=== PATIENT | male | born 1950 | race Caucasian/White ===

== ENCOUNTER → 2017-05-23 | Outpatient (CLI) | payer MEDICARE ==
--- NOTE | 2017-05-23 14:15 | CONS ---
CONSULTATION DATE OF SERVICE: 05/23/2017 A 66-year-old gentleman who has been re-evaluated in the Sleep Center for obstructive sleep apnea-hypopnea syndrome. HISTORY OF PRESENT ILLNESS/SLEEP-WAKE EVALUATION: Patient has been diagnosed with obstructive sleep apnea-hypopnea syndrome in 2009. Since that time, he was on treatment with CPAP. Patient continued to use CPAP equipment every night. Presently developed some problems with breathing through his nose. His sleep schedule from 9 p.m. until 7:38 a.m. Sometimes he has problem with falling asleep, does not have TV in bedroom. He wakes up from sleep 3 times with 3 episodes of nocturia, sometimes again plugging of his nose while he is using his machine. Last CPAP titration done in 2009. Since that time, patient is on treatment with CPAP at 9 cm of water. Previously, patient had severe periodic limb movements, but mostly before he was started on treatment with CPAP. [place] Sleepiness Scale today is 3. I checked patient's CPAP unit. Usage is 100% of the time more than 4 hours. Machine does not have information about patient's breathing during the sleep. RAMP is 30 minutes. Humidity at level of 4. PAST MEDICAL HISTORY: Nasal polyps, hyperlipidemia, BPH, sinusitis. PAST SURGICAL HISTORY: Sinus surgery in 2000. MEDICATIONS: Flonase, Flomax, simvastatin. SOCIAL HISTORY: Positive for smoking for about 30 years. Quit 10 years ago. Alcohol consumption none at the present time. REVIEW OF SYSTEMS: Awakenings from sleep while using his CPAP equipment. FAMILY HISTORY: Heart problems, sinus headaches, lung problems, sleep apnea, snoring. PHYSICAL EXAM: gentleman without distress, BP 139/88, HR 67, RR 16, height 5, 9-1/2 inches, weight 269.8, BMI 39.1, temperature 97.6, oxygen saturation at room air 97%. OROPHARYNX: Extremely low position of soft palate. Some restriction of nasal breathing. ABDOMEN: Obese. Neck Supple, no JVD. Thyroid is not palpable. LUNGS Clear to percussion and to auscultation. Good air exchange. No wheezing or rhonchi. HEART S1, S2 regular. No murmurs, gallops, or rubs. EXTREMITIES No clubbing or cyanosis. PRESS PULLER Awake, alert, and oriented X3. Cranial nerves 2 to 7 intact. There is no fasciculation or atrophy. noted. No focal deficits observed. IMPRESSION: 1. Obstructive sleep apnea-hypopnea syndrome for 8 years. Patient continued to use his CPAP equipment, awakenings from sleep while on CPAP 3 times with nocturia, low position of soft palate. 2. Obesity, body mass index 39.1. 3. Hyperlipidemia. 4. History of nasal polyps. 5. History of benign prostatic hypertrophy. 6. History of and restless legs. 7. History of sinusitis. 8. Status post sinus surgery in 2000. PLAN: 1. Will repeat CPAP titration for evaluation of effective CPAP pressure at the present time. Again, previous titration done 8 years ago. Patient has awakenings from sleep while he is using machine presently. 2. Losing weight. 3. Sleep hygiene with regular time in bed for at least 8 hours. 4. No driving if feeling sleepiness. Thank you very much for allowing me to participate in the management of your patient. Sincerely, Jason Cornejo MD, PhD, FAASM Diplomat of [employer] Hydroelectric Component Machinist of [facility] [place] MMODL / ADRIN: [id number] /
== END | disposition home or self-care (01) ==
LOC: SLEEP 13:02
PROVIDERS: ATTEND Internal Medicine
DX: G47.33 Obstructive sleep apnea (adult) (pediatric) (principal); G47.61 Periodic limb movement disorder; E78.5 Hyperlipidemia, unspecified; G25.81 Restless legs syndrome; N40.1 Benign prostatic hyperplasia with lower urinary tract symptoms; E66.9 Obesity, unspecified; Z98.890 Other specified postprocedural states; Z79.899 Other long term (current) drug therapy; Z87.891 Personal history of nicotine dependence; Z68.39 Body mass index [BMI] 39.0-39.9, adult; Z87.09 Personal history of other diseases of the respiratory system

== ENCOUNTER → 2017-09-05 | Outpatient (CLI) | payer MEDICARE ==
--- NOTE | 2017-09-05 11:36 | PN ---
PROGRESS NOTE DATE OF SERVICE: 09/05/2017 A 67-year-old gentleman who has been followed in the Sleep Center for treatment of obstructive sleep apnea-hypopnea syndrome. Recently patient received new CPAP unit and he came for followup visit for check up. He is able to use his CPAP equipment every night for the whole night without any problem except he feels that REM started with the too low pressure. Otherwise, during the night he sleeps well, does not snore. [place] Sleepiness Scale is in normal range 3. I checked his CPAP unit. CPAP pressure is 11 cm of water. RAMP is starting from 5 cm of water. It is in automatic regimen. Usage is 100% of the time more than 4 hours. Average usage is 9.1 hours. Leak is 24 L/minute which is acceptable. Apnea-hypopnea index only 0.7, which is totally normal. MEDICATIONS: Flonase, Flomax, simvastatin. PHYSICAL EXAM: Patient in no distress. BP 155/79, HR 76, RR 16, weight 274.2, temp 97.8, oxygen saturation at room air 95%. OROPHARYNX: Extremely low position of soft palate. ABDOMEN: Obese. Neck Supple, no JVD. Thyroid is not palpable. LUNGS Clear to percussion and to auscultation. Good air exchange. No wheezing or rhonchi. HEART S1, S2 regular. No murmurs, gallops, or rubs. EXTREMITIES No clubbing or cyanosis. MEDICAL RECORDS MANAGER Awake, alert, and oriented X3. Cranial nerves 2 to 7 intact. There is no fasciculation or atrophy. noted. No focal deficits observed. IMPRESSION: 1. Obstructive sleep apnea-hypopnea syndrome, on full control with CPAP. Patient demonstrated 100% compliance with treatment, benefitting from treatment. 2. Significant periodic limb movements during titration, but clinically as the patient started to use machine, he feels fine and does not have any movements of his legs at night. 3. Obesity. 4. Hyperlipidemia. 5. History of nasal polyps. 6. Status post sinus surgery in 2000. 7. History of benign prostatic hypertrophy. 8. Increasing blood pressure in the office today. PLAN: 1. Patient will continue to use CPAP equipment every night for the whole night. 2. Low-sodium diet, monitoring of the blood pressure. 3. Losing weight. 4. Sleep hygiene with regular time in bed for at least 8 hours. 5. No driving if feeling sleepiness. 6. Followup visit in 1 year or earlier if patient has any problems. Thank you very much for allowing me to participate in the management of your patient. Sincerely, Jason Cornejo MD, PhD, FAASM Diplomat of [employer] Medicine Information Manager of [facility] [place] ROSALINE / ROGER: [id number] /
== END | disposition home or self-care (01) ==
LOC: SLEEP 10:00
PROVIDERS: ATTEND Internal Medicine
DX: G47.33 Obstructive sleep apnea (adult) (pediatric) (principal); E66.9 Obesity, unspecified; E78.5 Hyperlipidemia, unspecified; R03.0 Elevated blood-pressure reading, without diagnosis of hypertension; Z87.09 Personal history of other diseases of the respiratory system; Z87.448 Personal history of other diseases of urinary system; Z98.890 Other specified postprocedural states; Z99.89 Dependence on other enabling machines and devices

== ENCOUNTER → 2018-08-21 | Outpatient (CLI) | payer MEDICARE ==
--- NOTE | 2018-08-21 15:16 | PN ---
PROGRESS NOTE DATE OF SERVICE: 08/21/2018 A 68-year-old gentleman who has been followed in the Sleep Center for treatment of obstructive sleep apnea-hypopnea syndrome. The patient continued to use his CPAP equipment every night for the whole night. No problems related to mask fitting, pressure, except sometimes he feel that he would like to have pressure a little bit higher from the beginning of the night when he put mask on. [place] Sleepiness Scale today is 3. I checked his CPAP unit. CPAP pressure is 11 cm of water. Ramp is in automatic regimen, starting pressure is 7 cm of water. Usage is 100% of the time more than 4 hours with average usage 9.5 hours. Leak 38 L/minute, which is high. Apnea-hypopnea index 0.4, which is absolutely normal. MEDICATIONS: Flonase, Flomax, simvastatin. PHYSICAL EXAM: Patient in no distress. BP 131/69, HR 74, RR 16, height 5 foot 9 inches, weight 272 pounds. Body mass index 40.1, temperature 98.0, oxygen saturation at room air 95%. OROPHARYNX: Extremely low soft palate, Mallampati 4. ABDOMEN: Obese. Neck Supple, no JVD. Thyroid is not palpable. LUNGS Clear to percussion and to auscultation. Good air exchange. No wheezing or rhonchi. HEART S1, S2 regular. No murmurs, gallops, or rubs. EXTREMITIES No clubbing or cyanosis. WOOD PATTERNMAKER APPRENTICE Awake, alert, and oriented X3. Cranial nerves 2 to 7 intact. There is no fasciculation or atrophy. noted. No focal deficits observed. IMPRESSION: 1. Obstructive sleep apnea-hypopnea syndrome. Patient demonstrated 100% compliance with treatment, benefitting with treatment. 2. History of periodic limb movements during sleep study, but clinically no problems related to the legs. Hyperlipidemia. 3. Obesity. 4. History of nasal polyps, status post sinus surgery in 2000. 5. History of benign prostatic hypertrophy. PLAN: 1. Patient will continue to use CPAP equipment every night for the whole night. 2. I changed ramp from automatic regimen to 20 minutes. 3. I explained the patient how to change time for the ramp by himself. 4. Prescription for all necessary CPAP supplies. 5. If patient will continue to have significant leak, consider chinstrap. 6. No driving if feeling sleepiness. 7. Followup visit in 1 year or earlier if patient has any problems. Thank you very much for allowing me to participate in the management of your patient. Sincerely, Jason Cornejo MD, PhD, FAASM Diplomat of [employer] Board of Internal Medicine Asphalt Spreader Operator of [facility] [place] MMODL / ADRIN: [id number] /
== END | disposition home or self-care (01) ==
LOC: SLEEP 13:53
PROVIDERS: ATTEND Internal Medicine
DX: G47.33 Obstructive sleep apnea (adult) (pediatric) (principal); E66.9 Obesity, unspecified; E78.5 Hyperlipidemia, unspecified; N40.0 Benign prostatic hyperplasia without lower urinary tract symptoms; Z87.09 Personal history of other diseases of the respiratory system; Z79.899 Other long term (current) drug therapy; Z99.89 Dependence on other enabling machines and devices; Z68.41 Body mass index [BMI] 40.0-44.9, adult

== ENCOUNTER → 2020-06-23 | Outpatient (CLI) | payer MEDICARE ==
--- NOTE | 2020-06-23 20:54 | SFUN ---
SLEEP CENTER FOLLOW UP NOTE DATE OF SERVICE: 06/23/2020 This 70-year-old gentleman has been followed in Sleep Center for treatment of obstructive sleep apnea-hypopnea syndrome. The patient successfully continues to use his CPAP equipment every night for the whole night. No snoring with the CPAP. [place] Sleepiness Scale is 5. I did not see the patient for about 1-1/2 years. I checked his CPAP unit. CPAP pressure is 11 cm of water. Usage is 30/30 nights for more than 4 hours, average 9.9 hours per night. Leak is high at 44 L/minute. Apnea- hypopnea index is 0.6, which is perfect. The patient is using a Montoya LT medium nasal pillow mask. MEDICATIONS: 1. Tamsulosin once a day. 2. Simvastatin once a day. 3. Losartan once a day. 4. Fluticasone spray at night. PHYSICAL EXAMINATION: GENERAL: A pleasant patient in no distress. VITAL SIGNS: BP 150/76, HR 70, RR 18, height 5 feet 10 inches, weight 276.2. The patient's weight increased by 4 pounds since previous visit. BMI 39.6, temperature 97.9, oxygen saturation at room air 97%. HEENT: PERRLA, EOMI. Evaluation of oropharynx showed tongue protrudes midline. Extremely low position of soft palate. Mallampati IV. NECK: Supple. No JVD. Thyroid is not palpable. LUNGS: Clear to percussion and to auscultation. Good air exchange. No wheezing or rhonchi. HEART: S1, S2 regular. No murmurs, gallops or rubs. ABDOMEN: Obese. EXTREMITIES: No clubbing or cyanosis. BUS DRIVER SCHOOL: Awake, alert, and oriented X3. Cranial nerves 2 to 7 intact. There is no fasciculation or atrophy. noted. No focal deficits observed. IMPRESSION: 1. Obstructive sleep apnea-hypopnea syndrome. The patient demonstrated 100% compliance with treatment, benefitting from treatment. 2. Hyperlipidemia. 3. Obesity. 4. History of periodic limb movements during the sleep study. No clinical problems. 5. History of nasal polyps, status post sinus surgery in 2000. 6. History of benign prostatic hypertrophy. PLAN: 1. Patient will continue to use PAP equipment every night for the whole night. 2. Sleep hygiene with regular time in bed for at least 7-1/2 to 8 hours. 3. Precautions related to driving. No driving if feeling sleepiness. 4. I will maintain all necessary prescription for PAP supplies including mask, tube, filters. 5. Watching weight. 6. Follow-up visit in 6 months or earlier if patient has any problems. Thank you very much for allowing me to participate in the management of your patient. Sincerely, Jason Cornejo MD, PhD, FAASM Diplomat of [employer]ties [employer] Board of Internal Medicine Compensation Adjuster of [facility] [place] MMODL / IJN: [id number] /

== ENCOUNTER → 2021-01-19 | Outpatient (CLI) | payer MEDICARE ==
--- NOTE | 2021-01-19 12:31 | SFUN ---
SLEEP CENTER FOLLOW UP NOTE DATE OF SERVICE: 01/19/2021. 70-year-old gentleman has been followed in Sleep Center for treatment of obstructive sleep apnea-hypopnea syndrome. Patient continued to use his CPAP equipment every night for the whole night. Told that he could not sleep without CPAP now so he so much used to the machine. The patient is using cleaning system and keeps the water in the morning in the humidifier chamber. I explained to him that he should empty humidifier chamber in the morning, clot it dry and preferably not to use cleaning systems now because of the recall from [employer]. [place] Sleepiness Scale today is 4. I checked CPAP unit. Pressure is 11 cm of water. Usage is 30/30 nights for more than 5 hours. Average 9.5 hours per night. Leak is 41 L/minute which is slightly increased, but apnea-hypopnea index is totally perfect only 0.4 per hour. Previously patient had a problem with periodic limb movements. Presently while on treatment with CPAP, according to him no any movements of the legs at night. MEDICATIONS: Tamsulosin once a day, simvastatin once a day, losartan once a day, fluticasone spray at night if necessary. PHYSICAL EXAMINATION: GENERAL: Patient in no distress. BP 156/82, HR 70, RR 15, height 5 feet 10 inches, weight 270, body mass index 38.7. The patient lost 6 pounds since previous visit. Temperature 98.1, oxygen saturation at room air 97%. Oropharynx: Extremely low position of soft palate, Mallampati 4. NECK: Supple, no JVD. Thyroid is not palpable. LUNGS: Clear to percussion and to auscultation. Good air exchange. No wheezing or rhonchi. HEART: S1, S2 regular. No murmurs, gallops, or rubs. ABDOMEN: Obese. Soft and nontender. Bowel sounds are present. No organomegaly appreciated. EXTREMITIES: No clubbing or cyanosis. DOCKMASTER: Awake, alert, and oriented X3. Cranial nerves 2 to 7 intact. There is no fasciculation or atrophy. noted. No focal deficits observed. IMPRESSION: 1. Obstructive sleep apnea-hypopnea syndrome. The patient demonstrated 100% compliance with treatment benefitting from treatment. 2. Hypertension. 3. Hyperlipidemia. 4. Obesity. 5. History of periodic limb movements in the past. No present symptoms of leg movements at night. 6. Benign prostatic hypertrophy. 7. History of nasal polyps, status post sinus surgery. PLAN: 1. The patient should empty humidifier chamber in the morning and let it dry. 2. Preferably not to use cleaning system for the machine at the present time. Use only soap and water. 3. Patient will continue to use PAP equipment every night for the whole night. 4. Sleep hygiene with regular time in bed for at least 7-1/2 to 8 hours. 5. Precautions related to driving. No driving if feeling sleepiness. 6. I will maintain all necessary prescription for PAP supplies including mask, tube, filters. 7. Watching weight. 8. Follow-up visit in 6 months or earlier if patient has any problems. Thank you very much for allowing me to participate in management of your patient. Sincerely, Jason Cornejo MD, PhD, FAASM Diplomat of [employer] Sleep Medicine Board of [employer] of Internal Medicine Cushion Assembler of [facility] [place] MMODL / IJN: [id number] /
== END ==
LOC: SLEEP 09:35
PROVIDERS: ATTEND Internal Medicine
DX: G47.33 Obstructive sleep apnea (adult) (pediatric) (principal); I10 Essential (primary) hypertension; E78.5 Hyperlipidemia, unspecified; E66.9 Obesity, unspecified; N40.0 Benign prostatic hyperplasia without lower urinary tract symptoms; Z87.09 Personal history of other diseases of the respiratory system; Z98.890 Other specified postprocedural states; Z79.899 Other long term (current) drug therapy

== ENCOUNTER → 2021-11-29 | Outpatient (CLI) | payer MEDICARE ==
--- NOTE | 2021-11-29 11:03 | P.PN ---
Subjective DATE: 11/29/2021 FOLLOW UP VISIT. Patient with obstructive sleep apnea hypopnea syndrome return to sleep center for follow-up visit. Information from previous visit have been reviewed. Patient is using PAP equipment every night for the whole night, getting PAP supplies in time. The patient does not have significant problems with the mask, PAP unit and humidification. [place] sleepiness scale is 3. I checked PAP unit. Air filter is in good shape. PAP unit pressure 11 cm H2O. Usage is 100 % for more then 4 hours, average 9.9 hours per night. Leak is 37 l/m, which is in increased range, possibly patient opens his mouth. He is using nasal pillow mask. Apnea Hypopnea Index is 0.5, which is normal. MEDICATIONS:1. Fluticasone nasal spray 2. Flomax 0.4 mg once a day 3. Simvastatin 40 mg once a day 4. Losartan 25 mg once a day During physical exam: GENERAL: A pleasant patient without any distress. VITAL SIGNS: BP 130/73, HR 67, RR 16 , weight 264.0, temperature 98.1, oxygen saturation at room air 96 % . HEENT: PERRLA, EOMI.low position of soft palate, Mallapati 4 . NECK: Supple. No JVD. LUNGS: Clear to percussion and to auscultation. Good air exchange. No wheezing or rhonchi. HEART: S1, S2 regular. ABDOMEN: Soft and nontender. Obese EXTREMITIES: No clubbing or cyanosis. VOICE INSTRUCTOR: Awake, alert, and oriented x3. No focal deficit. Impressions: 1. Obstructive sleep apnea-hypopnea syndrome. Patient demonstrated great compliance with treatment, benefiting from treatment. 2. Obesity. 3. Hypertension. 4. Hyperlipidemia. 5. History of periodic limb movements, presently no clinical complaints. 6. BPH. 7. History of nasal polyps, status post sinus surgery. Plan: 1. Continue using PAP equipment every night for the whole night. 2. To change air filter at least 1-2 times per month. 3. PAP unit should stay lower then position of the head. 4. Advised patient to remove all remaining water from humidifier canister daily and make it dry after each usage. Refill canister with fresh distilled water before each usage. 5. Sleep hygiene with regular time in bed for at least 8 hours. 6. Precautions related to driving. No driving if feel any sleepiness. 7. I will maintain prescription for PAP supplies including mask, tube, filters. 8. Follow up visit in 6 months or earlier if patient has any problems. 9. Watching and losing weight. Thank you very much for allowing me to participate in the management of your patient. Jason Cornejo MD, PhD, FAASM. Diplomat of [employer], Sleep Medicine Board by [employer] Medicine Floor Sweeper of [facility] [place]
== END ==
LOC: SLEEP 09:47
PROVIDERS: ATTEND Internal Medicine
DX: G47.33 Obstructive sleep apnea (adult) (pediatric) (principal); E78.5 Hyperlipidemia, unspecified; G47.61 Periodic limb movement disorder; Z87.09 Personal history of other diseases of the respiratory system; E66.9 Obesity, unspecified; I10 Essential (primary) hypertension; N40.0 Benign prostatic hyperplasia without lower urinary tract symptoms; Z99.89 Dependence on other enabling machines and devices

== ENCOUNTER → 2022-06-07 | Outpatient (CLI) | payer MEDICARE ==
--- NOTE | 2022-06-07 13:55 | P.PN ---
Subjective DATE: 06/07/2022 FOLLOW UP VISIT. Patient with obstructive sleep apnea hypopnea syndrome return to sleep center for follow-up visit. Information from previous visit have been reviewed. Patient is using PAP equipment every night for the whole night, getting PAP supplies in time. 2 weeks ago his heated humidifier was broken. The patient does not have significant problems with the mask, PAP unit and humidification. [place] sleepiness scale is 3, which is normal. I checked information from PAP unit. PAP unit pressure 11 cm H2O. Usage is 100 % for more then 4 hours, average 9.8 hours per night. Leak is 32 l/m, which is in acceptable range. Apnea Hypopnea Index is 0.7, which is normal. MEDICATIONS:1. Simvastatin 40 mg once a day 2. Losartan 25 mg once a day 3. Fluticasone nasal spray 4. Tamsulosin During physical exam: GENERAL: A pleasant patient without any distress. VITAL SIGNS: BP 148/74, HR 68, RR 18 , weight 267, temperature 97.7, oxygen saturation at room air 97 % . HEENT: PERRLA, EOMI.low position of soft palate, Mallapati 4 . NECK: Supple. No JVD. LUNGS: Clear to percussion and to auscultation. Good air exchange. No wheezing or rhonchi. HEART: S1, S2 regular. ABDOMEN: Soft and nontender. Obese EXTREMITIES: No clubbing or cyanosis. MANAGER MEDICAL AFFAIRS: Awake, alert, and oriented x3. No focal deficit. Impressions: 1. Obstructive sleep apnea-hypopnea syndrome. Patient demonstrated great compliance with treatment, benefiting from treatment. Humidifier was broken 2. Obesity body mass and is 38.8. 3. Hypertension. 4. Hyperlipidemia. 5. BPH. 6. History of periodic limb movements, no problems at the present time. 7. History of nasal polyps, status post sinuses surgery. Plan: 1. Continue using PAP equipment every night for the whole night. Prescription to fix or replace CPAP unit. 2. To change air filter at least 1-2 times per month. 3. PAP unit should stay lower then position of the head. 4. Advised patient to remove all remaining water from humidifier canister daily and make it dry after each usage. Refill canister with fresh distilled water before each usage. 5. Sleep hygiene with regular time in bed for at least 8 hours. 6. Precautions related to driving. No driving if feel any sleepiness. 7. I will maintain prescription for PAP supplies including mask, tube, filters. 8. Watching and losing weight. 9. Follow up visit after getting new CPAP unit. Thank you very much for allowing me to participate in the management of your patient. Jason Cornejo MD, PhD, FAASM. Diplomat of [place] [employer] Medicine, Sleep Medicine Board by [employer] Medicine Speech Pathologist Assistant of [facility] [place]
== END ==
LOC: SLEEP 13:19
PROVIDERS: ATTEND Internal Medicine
DX: G47.33 Obstructive sleep apnea (adult) (pediatric) (principal); E66.9 Obesity, unspecified; E78.5 Hyperlipidemia, unspecified; N40.0 Benign prostatic hyperplasia without lower urinary tract symptoms; I10 Essential (primary) hypertension; Z68.38 Body mass index [BMI] 38.0-38.9, adult; Z99.89 Dependence on other enabling machines and devices

== ENCOUNTER → 2023-07-04 | Outpatient (CLI) | payer MEDICARE ==
--- NOTE | 2023-07-04 10:50 | P.PN ---
Subjective DATE: 07/04/2023 FOLLOW UP VISIT. Patient with obstructive sleep apnea hypopnea syndrome return to sleep center for follow-up visit. Information from previous visit have been reviewed. Patient is using PAP equipment every night for the whole night, getting PAP supplies in time. The patient does not have significant problems with the mask, PAP unit and humidification. [place] sleepiness scale is 3, which is normal. I checked information from PAP unit. PAP unit pressure 6-13, average 11.5 cm H2O. Usage is 100% for more then 4 hours, average 9.5 hours per night. Leak is 10.1 l/m, which is in acceptable range. Apnea Hypopnea Index is perfect 0.2. MEDICATIONS:1. Flomax 2. Simvastatin 40 mg once a day 3. Losartan 25 mg once a day 4. Fluticasone 5. Flomax During physical exam: GENERAL: A pleasant patient without any distress. VITAL SIGNS: Please see below, weight 271.8 pounds. HEENT: PERRLA, EOMI.low position of soft palate, Mallapati 4 . NECK: Supple. No JVD. LUNGS: Clear to percussion and to auscultation. Good air exchange. No wheezing or rhonchi. HEART: S1, S2 regular. ABDOMEN: Soft and nontender. Obese EXTREMITIES: No clubbing or cyanosis. CHILD CARE SITTER: Awake, alert, and oriented x3. No focal deficit. Impressions: 1. Obstructive sleep apnea-hypopnea syndrome. Patient demonstrated great compliance with treatment, benefiting from treatment. 2. Obesity, patient increased weight on 4 pounds comparing with previous visit. 3. Hypertension. 4. BPH. 5. Hyperlipidemia. 6. History of nasal polyps, status post sinus surgery. 7. History of periodic limb movements, no complaints at the present time. Plan: 1. Continue using PAP equipment every night for the whole night. 2. To change air filter at least 1-2 times per month. 3. PAP unit should stay lower then position of the head. 4. Advised patient to remove all remaining water from humidifier canister daily and make it dry after each usage. Refill canister with fresh distilled water before each usage. 5. Sleep hygiene with regular time in bed for at least 8 hours. 6. Precautions related to driving. No driving if feel any sleepiness. 7. I will maintain prescription for PAP supplies including mask, tube, filters. 8. Follow up visit in 6 months or earlier if patient has any problems. 9. Watching and losing weight. Thank you very much for allowing me to participate in the management of your patient. Jason Cornejo MD, PhD, FAASM. Diplomat of [employer] Medicine, Sleep Medicine Board by [employer] Fisheries Management Biologist of [facility] [place] Objective - Vital Signs Vital signs: Vital Signs Temp 97.9 F 07/04/23 10:18 Pulse 69 07/04/23 10:18 Resp 16 07/04/23 10:18 BP 146/82 07/04/23 10:18 Pulse Ox 96 07/04/23 10:18 FiO2 Intake & Output 07/03/23 07/04/23 07/04/23 18:59 06:59 18:59 Weight 122.924 kg
[2023-07-04 10:58] VITALS: BP 146/82; PULSE 69; RESP 16; TEMP 97.9
== END ==
LOC: 3 N SLEEP 09:41
PROVIDERS: ATTEND Internal Medicine
DX: G47.33 Obstructive sleep apnea (adult) (pediatric) (principal); E66.9 Obesity, unspecified; I10 Essential (primary) hypertension; N40.0 Benign prostatic hyperplasia without lower urinary tract symptoms; E78.5 Hyperlipidemia, unspecified; Z98.890 Other specified postprocedural states; Z86.69 Personal history of other diseases of the nervous system and sense organs; Z87.09 Personal history of other diseases of the respiratory system; Z99.89 Dependence on other enabling machines and devices; Z79.899 Other long term (current) drug therapy; Z68.39 Body mass index [BMI] 39.0-39.9, adult
CPT/HCPCS: 99212

== ENCOUNTER → 2024-02-19 | Outpatient (CLI) | payer MEDICARE ==
[2024-02-19 10:21] VITALS: BP 135/83; PULSE 64; RESP 16; TEMP 97.8
--- NOTE | 2024-02-19 10:40 | P.PROGSL ---
Subjective DATE: 02/19/2024 FOLLOW UP VISIT. Patient with obstructive sleep apnea hypopnea syndrome return to sleep center for follow-up visit. Information from previous visit have been reviewed. Patient is using PAP equipment every night for the whole night, getting PAP supplies in time. The patient does not have significant problems with the mask, PAP unit and humidification. [place] sleepiness scale is 3, which is perfect. I checked information from PAP unit. PAP unit pressure 6-13, average 12.4 cm H2O. Usage is 100% for more then 4 hours, average 11 hours per night. Leak is 5 l/m, which is in acceptable range. Apnea Hypopnea Index is perfect 0.2. Patient feels slight discomfort secondary to to low pressure at the beginning of and he is starting to use CPAP unit. Starting from the pressure 5 cm of water MEDICATIONS have been reviewed, please see below. During physical exam: GENERAL: A pleasant patient without any distress. VITAL SIGNS: Please see below, weight is 257 lbs. HEENT: PERRLA, EOMI.low position of soft palate, [place] 4 . NECK: Supple. No JVD. LUNGS: Clear to percussion and to auscultation. Good air exchange. No wheezing or rhonchi. HEART: S1, S2 regular. ABDOMEN: Soft and nontender.[] EXTREMITIES: No clubbing or cyanosis. [employer]: Awake, alert, and oriented x3. No focal deficit. I changed starting pressure for ramp up to 7 cm of water and I changed AutoPap pressure to the range 7 to 13 cm of water. Impressions: 1. Obstructive sleep apnea-hypopnea syndrome. Patient demonstrated great compliance with treatment, benefiting from treatment. 2. Obesity, BMI 37.9, patient lost 14 pounds comparing with previous visit. 3. Hypertension. 4. BPH. 5. Hyperlipidemia. 6. History of periodic limb movements, no complaints at the present time. 7. History of nasal polyps, status post sinus surgery. Plan: 1. Continue using PAP equipment every night for the whole night. 2. Sleep hygiene with regular time in bed for at least 7.5-8 hours 3. PAP unit should stay lower then position of the head. 4. Advised patient to remove all remaining water from humidifier canister daily and make it dry after each usage. Refill canister with fresh distilled water before each usage. 5. Watching and losing weight. 6. Precautions related to driving. No driving if feel any sleepiness. 7. I will maintain prescription for PAP supplies including mask, tube, filters. 8. Follow up visit in 8 months or earlier if patient has any problems. Thank you very much for allowing me to participate in the management of your patient. Jason Cornejo MD, PhD, FAASM. Diplomat of [place] [employer], Sleep Medicine Board by [place] [employer] [facility] [place] Objective - Vital Signs Vital Signs: Vital Signs Temp 97.8 F 02/19/24 10:20 Pulse 64 02/19/24 10:20 Resp 16 02/19/24 10:20 BP 135/83 02/19/24 10:20 Pulse Ox 95 02/19/24 10:20 FiO2 Intake & Output 02/18/24 02/19/24 02/19/24 18:59 06:59 18:59 Weight 116.573 kg Home Medications: Home Medications Medication Instructions Recorded Confirmed Type Fluticasone Nasal [place] [Flonase 2 spray EA NOSTRIL DAILY 07/04/23 07/04/23 History Nasal [place]] Lovastatin [Mevacor] 10 mg PO DAILY 07/04/23 02/19/24 History Simvastatin [Zocor] 5 mg PO DAILY 07/04/23 02/19/24 History Tamsulosin [Flomax] 0.4 mg PO DAILY 07/04/23 02/19/24 History
== END ==
LOC: 3 N SLEEP 10:06
PROVIDERS: ATTEND Internal Medicine
DX: G47.33 Obstructive sleep apnea (adult) (pediatric) (principal); E66.9 Obesity, unspecified; Z68.37 Body mass index [BMI] 37.0-37.9, adult; I10 Essential (primary) hypertension; N40.0 Benign prostatic hyperplasia without lower urinary tract symptoms; E78.5 Hyperlipidemia, unspecified; G47.61 Periodic limb movement disorder; Z98.890 Other specified postprocedural states; Z99.89 Dependence on other enabling machines and devices
CPT/HCPCS: 99212